=== PATIENT | male | born 1935 | race Caucasian/White ===

== ENCOUNTER 2016-05-18 01:29 | Observation (INO) | payer OTHER ==
[2016-05-18] VITALS (14 sets, daily range): BP systolic 155–240; BP diastolic 84–125; PULSE 71–106; RESP 18–22; TEMP 95.9–98.2; O2SAT 93–99
[~2016-05-18] VITALS: Ht 188 cm; Wt 81.0 kg
[~2016-05-18 01:29] MED LIST: CAPOZ2515 PO; LEVO100T60 PO; LOVA40TA PO; METO50TA PO; OMEP20CA5 PO; PACE200T4 PO; SULF1SOL4 OU; TOBRA.3%O RIGHT EYE
--- NOTE | 2016-05-18 01:43 | PD ---
HPI Chief Complaint: shortness of breath Time Seen by Provider: 01:36 Travel History International Travel<30 days: No Contact w/Intl Traveler<30days: No Traveled to known affect area: No History of Present Illness HPI 80-year-old male with history of CAD, CABG, here for evaluation of shortness of breath. The patient reports that he woke up in the middle the night feeling short of breath. He reports similar episode several days ago which resolved on its own. He had a pulmonary infection when he was young and had part of his left lung resected. For last 3 weeks he has been having a cough which is intermittent productive of greenish sputum. No fevers or chills. No chest pain. No history of DVT or PE. PFSH Past Medical History Diminished Hearing: No GERD: Yes Hiatal Hernia: Yes Hypertension: Yes Ulcer: Yes (STOMACH) Past Surgical History Coronary Artery Bypass Graft: Yes Thoracic Surgery: Yes (LUNG) Other Surgery: Yes (HIATEL HERNIA) Social History Alcohol Use: Yes (2-3 drinks daily) Tobacco Use: No Substance Use: No Allergies-Medications (Allergen,Severity, Reaction): Coded Allergies: Niacin (Verified Allergy, Severe, HIVES, 05/18/16) RASH Reported Meds & Prescriptions Reported Meds & Active Scripts Active Reported Levothyroxine (Levothyroxine Sodium) 88 Mcg Tab 88 Mcg PO DAILY Captopril-Hydrochlorothiazide 50-15 Mg Tab 1 Tab PO DAILY Take 1 hr before meal(s) Lovastatin 10 Mg Tab 10 Mg PO BID Omeprazole 20 Mg Tab 20 Mg PO BID Potassium Chloride ER (Potassium Chloride) 10 Meq Tab 10 Meq PO DAILY Metoprolol Tartrate 50 Mg Tab 50 Mg PO BID Review of Systems Except as stated in HPI: all other systems reviewed are Neg Physical Exam Narrative GENERAL: Well-developed, well-nourished, pleasant, awake, alert, speaking full sentences, no acute distress. SKIN: Warm and dry. HEAD: Atraumatic. Normocephalic. EYES: Pupils equal and round. No scleral icterus. No injection or drainage. ENT: Mucous membranes pink and moist. NECK: Trachea midline. No JVD. CARDIOVASCULAR: Regular rate and rhythm. No murmur appreciated. RESPIRATORY: No accessory muscle use. Bilateral lens between his respiratory wheezes. Speaking full sentences. Breath sounds equal bilaterally. GASTROINTESTINAL: Abdomen soft, non-tender, nondistended. MUSCULOSKELETAL: No obvious deformities. No clubbing. No cyanosis. No edema. NEUROLOGICAL: Awake and alert. No obvious cranial nerve deficits. Motor grossly within normal limits. Normal speech. PSYCHIATRIC: Appropriate mood and affect; insight and judgment normal. Data Data Last Documented VS Vital Signs Date Time Temp Pulse Resp B/P Pulse Ox O2 Delivery O2 Flow Rate FiO2 05/18/16 02:30 95 Room Air 05/18/16 02:30 85 20 206/112 05/18/16 02:15 97.6 Orders Complete Blood Count With Diff (05/18/16 01:39) Comprehensive Metabolic Panel (05/18/16 01:39) B-Type Natriuretic Peptide (05/18/16 01:39) Act Partial Throm Time (Ptt) (05/18/16 01:39) Prothrombin Time / Inr (Pt) (05/18/16 01:39) Ckmb (Isoenzyme) Profile (05/18/16 01:39) Troponin I (05/18/16 01:39) Influenzae A/B Antigen (05/18/16 01:39) Blood Culture (05/18/16 01:39) Iv Access Insert/Monitor (05/18/16 01:39) Electrocardiogram (05/18/16 01:39) Ecg Monitoring (05/18/16 01:39) Oximetry (05/18/16 01:39) Oxygen Administration (05/18/16 01:39) Chest, Single Ap (05/18/16 01:39) Sodium Chloride 0.9% Flush (Ns Flush) (05/18/16 01:45) Methylprednisolone So Succ Inj (Solumedr (05/18/16 01:45) Albuterol-Ipratropium Neb (Duoneb Neb) (05/18/16 01:45) CKMB (05/18/16 02:00) CKMB% (05/18/16 02:00) Labs Laboratory Tests Test 05/18/16 02:00 White Blood Count 10.4 TH/MM3 Red Blood Count 4.74 MIL/MM3 Hemoglobin 14.4 GM/DL Hematocrit 43.5 % Mean Corpuscular Volume 91.8 FL Mean Corpuscular Hemoglobin 30.4 PG Mean Corpuscular Hemoglobin 33.2 % Concent Red Cell Distribution Width 13.4 % Platelet Count 278 TH/MM3 Mean Platelet Volume 8.3 FL Neutrophils (%) (Auto) 58.3 % Lymphocytes (%) (Auto) 25.6 % Monocytes (%) (Auto) 9.5 % Eosinophils (%) (Auto) 6.1 % Basophils (%) (Auto) 0.5 % Neutrophils # (Auto) 6.1 TH/MM3 Lymphocytes # (Auto) 2.6 TH/MM3 Monocytes # (Auto) 1.0 TH/MM3 Eosinophils # (Auto) 0.6 TH/MM3 Basophils # (Auto) 0.1 TH/MM3 CBC Comment DIFF FINAL Differential Comment Prothrombin Time 11.5 SEC Prothromb Time International 1.0 RATIO Ratio Activated Partial 26.8 SEC Thromboplast Time Sodium Level 136 MEQ/L Potassium Level 3.4 MEQ/L Chloride Level 102 MEQ/L Carbon Dioxide Level 24.0 MEQ/L Anion Gap 10 MEQ/L Blood Urea Nitrogen 15 MG/DL Creatinine 1.20 MG/DL Estimat Glomerular Filtration 59 ML/MIN Rate Random Glucose 98 MG/DL Calcium Level 8.8 MG/DL Total Bilirubin 0.4 MG/DL Aspartate Amino Transf 16 U/L (AST/SGOT) Alanine Aminotransferase 30 U/L (ALT/SGPT) Alkaline Phosphatase 47 U/L Total Creatine Kinase 181 U/L Creatine Kinase MB 4.5 NG/ML Troponin I 0.10 NG/ML B-Type Natriuretic Peptide 246 PG/ML Total Protein 7.4 GM/DL Albumin 3.6 GM/DL [facility] Medical Decision Making Medical Screen Exam Complete: Yes Emergency Medical Condition: Yes Differential Diagnosis Reactive airway disease, pneumonia, bronchitis, ACS, pneumothorax, PE, pulmonary edema Narrative Course Initial vital signs show heart rate 81, blood pressure 240/125, pulse ox 96% on room air, oral temp of 97.6F. CBC is unremarkable. CMP is unremarkable. Cardiac enzymes show troponin of 0.10. BNP is 246. Influenza is negative. Chest x-ray: Postoperative CABG, scattered parenchymal scarring and atelectasis in the lungs. Patient was given 3 DuoNeb treatments and wheezing has resolved. He was also given soluMedrol 125 mg IV. He tells me that he has A. fib and takes aspirin for it. He was made aware of all findings. Given slight elevated troponin, he' ll be admitted for overnight observation for serial cardiac enzymes. Case discussed with hospitalist Dr. Blanchard who will admit the patient to her service. Diagnosis Primary Impression: Dyspnea Qualified Code: R06.02 - Shortness of breath Additional Impression: Elevated troponin Admitting Information Admitting Physician Requests: Observation Fernanod Mccollum MD May 18, 2016 01:43
[2016-05-18] MEDS ORDERED: SODIUM CHLORIDE 0.9% FLUSH 5 ML FLUSH IVF PRN (01:45)
[2016-05-18] MEDS ORDERED: methylPREDNISolone SOD SUCC 125 MG/2 ML VIAL IVP ONE (01:45)
[2016-05-18] MEDS: RESP: ALBUTEROL 2.5 MG/IPRATROPIUM 0.5 MG NEB (SCH) INH ×2 (01:51→01:52)
[2016-05-18 02:12] LABS: AUTOMATED NEUTROPHIL # 6.1 TH/MM3 (1.8-7.7); BASOPHIL # 0.1 TH/MM3 (0-0.2); BASOPHIL % 0.5 % (0.0-2.0); EOSINOPHIL # 0.6 TH/MM3 (0-0.4); EOSINOPHIL % 6.1 % (0.0-4.0); HEMATOCRIT 43.5 % (39.0-51.0); HEMO FLAGS DIFF FINAL; LYMPH % 25.6 % (9.0-44.0); LYMPHOCYTE # 2.6 TH/MM3 (1.0-4.8); MEAN CELL VOLUME 91.8 FL (80.0-100.0); MEAN CORPUSCULAR HEMOGLOBIN 30.4 PG (27.0-34.0); MEAN CORPUSCULAR HGB CONC 33.2 % (32.0-36.0); MONO % 9.5 % (0.0-8.0); NEUT % 58.3 % (16.0-70.0); PLATELET COUNT 278 TH/MM3 (150-450); RED BLOOD COUNT 4.74 MIL/MM3 (4.50-5.90); RED CELL DISTRIBUTION WIDTH 13.4 % (11.6-17.2); WHITE BLOOD COUNT 10.4 TH/MM3 (4.0-11.0)
[2016-05-18 02:21] LABS: CHLORIDE 102 MEQ/L (98-107); POTASSIUM 3.4 MEQ/L (3.5-5.1); SODIUM (NA) 136 MEQ/L (136-145)
[2016-05-18] MEDS ORDERED: POTA10TA2 PO (02:24)
[2016-05-18] MEDS ORDERED: METO50TA PO (02:24)
[2016-05-18] MEDS ORDERED: CAPT50TA3 PO (02:24)
[2016-05-18] MEDS ORDERED: LOVA10TA PO (02:24)
[2016-05-18] MEDS ORDERED: LEVO88TA2 PO (02:24)
[2016-05-18] MEDS ORDERED: OMEP20TA PO (02:24)
--- NOTE | 2016-05-18 02:24 | RADHPO ---
EXAM DATE/TIME: 05/18/2016 02:08 [place] COMPARISON: No previous studies available for comparison. INDICATIONS : Short of breath. MEDICAL HISTORY : Cardiovascular disease. SURGICAL HISTORY : CABG. ENCOUNTER: Initial ACUITY: 1 day PAIN SCORE: 6/10 LOCATION: Bilateral chest FINDINGS: There are postoperative changes of coronary artery bypass grafting. Previous median sternotomy and CA BG. Scattered parenchymal scarring and atelectasis in the lungs. No effusion. No pneumothorax. CONCLUSION: 1. Postoperative CABG. Scattered parenchymal scarring and atelectasis in the lungs. Joss Be MD on May 18, 2016 at 2:19 Board Certified Radiologist. This report was verified electronically.
[2016-05-18 02:25] LABS: ANION GAP 10 MEQ/L (5-15); BLOOD UREA NITROGEN 15 MG/DL (7-18)
[2016-05-18 02:26] LABS: APTT (PATIENT) 26.8 SEC (24.3-30.1); PROTHROMBIN TIME - PATIENT 11.5 SEC (9.8-11.6)
[2016-05-18 02:28] LABS: ALT (GPT) 30 U/L (12-78); AST (GOT) 16 U/L (15-37)
[2016-05-18 02:29] LABS: GLOMERULAR FILTRATION RATE 59 ML/MIN (>89)
[2016-05-18 02:30] LABS: TOTAL BILIRUBIN ADULT 0.4 MG/DL (0.2-1.0)
[2016-05-18 02:31] LABS: ALKALINE PHOSPHATASE 47 U/L (45-117); CREATINE KINASE 181 U/L (39-308)
[2016-05-18 02:43] LABS: CKMB 4.5 NG/ML (0.5-3.6)
[2016-05-18] MEDS ORDERED: MORPHINE SULFATE 4 MG/ML INJ IV PRN (03:45)
[2016-05-18] MEDS ORDERED: ACETAMINOPHEN 325 MG TAB PO PRN (03:45)
[2016-05-18] MEDS ORDERED: ACETAMINOPHEN/HYDROcodone 325 MG/5 MG TAB PO PRN (03:45)
[2016-05-18] MEDS ORDERED: SODIUM CHLORIDE 0.9% FLUSH 5 ML FLUSH FLUSH PRN (03:45)
[2016-05-18] MEDS ORDERED: RESP: ALBUTEROL 2.5 MG/IPRATROPIUM 0.5 MG NEB (PRN) NEB (03:45)
[2016-05-18] MEDS ORDERED: BISACODYL 10 MG SUPP PR PRN (03:45)
[2016-05-18] MEDS ORDERED: ONDANSETRON HCL 4 MG/2 ML VIAL IVP PRN (03:45)
[2016-05-18] MEDS ORDERED: ASPI81CH CHEW (04:34)
[2016-05-18] MEDS: SODIUM CHLORIDE 0.9% FLUSH 5 ML FLUSH FLUSH SCH ×2 (09:38→20:56)
[2016-05-18] MEDS ORDERED: POTASSIUM CHLORIDE 20 MEQ CONTROLLED RELEASE TAB PO ONE (12:15)
--- NOTE | 2016-05-18 12:18 | EKG ---
Date Performed: 05/18/2016 Time Performed: 01:43:54 PTAGE: 80 years EKG: Atrial fibrillation. Lateral T wave changes are nonspecific Compared to the previous tracin g atrial fibrillation has replaced Sinus rhythm Abnormal ECG PREVIOUS TRACING : 08/29/2007 02.19 DOCTOR: Jose Alejandro Abraham Interpretating Date/Time 05/18/2016 12:18:28
[2016-05-18] MEDS: ASPIRIN 81 MG CHEW TAB CHEW SCH (12:43)
[2016-05-18] MEDS: METOPROLOL TARTRATE 50 MG TAB PO SCH ×2 (12:43→20:56)
[2016-05-18] MEDS ORDERED: ENALAPRILAT 1.25 MG/ML VIAL IV PUSH PRN (13:00)
--- NOTE | 2016-05-18 13:10 | HHI.HP ---
zayra matthews [facility] Salvador Matthews MD Admission Diagnosis dyspnea, elevated troponin Diagnoses: Chief Complaint: Short of breath Travel History International Travel<30 Days: No Contact w/Intl Traveler <30 Da: No Traveled to Known Affected Are: No History of Present Illness Patient seen and evaluated in follow-up for increased shortness of breath and work of breathing over the last 4 days. Patient reports 3 weeks of cold symptoms including chest congestion and cough patient was taking Coricidin and Claritin-D. He had 4 days of increased dyspnea on exertion and shortness of breath. Patient says that he came to emergency room for evaluation if it did not resolve. No recent fevers or chills but he reports weight loss and just feeling poorly. Patient was evaluated in the emergency room and found to have a blood pressure of 206/112. Patient has some congestion on chest exam. X-ray of the chest does show atelectasis. There is no evidence of vascular edema on my review. Patient's been recommended for observation the hospital due to increasing work of breathing and dyspnea Review of Systems Constitutional: COMPLAINS OF: Fatigue, Weight loss, DENIES: Diaphoretic episodes, Fever, Weight gain, Chills, Dizziness, Change in appetite, Night Sweats Endocrine: DENIES: Heat/cold intolerance, Polydipsia, Polyuria, Polyphagia Eyes: DENIES: Blurred vision, Diplopia, Eye inflammation, Eye pain, Vision loss , Photosensitivity, Double Vision Ears, nose, mouth, throat: DENIES: Tinnitus, Hearing loss, Vertigo, Nasal discharge, Oral lesions, Throat pain, Hoarseness, Ear Pain, Running Nose, Epistaxis, Sinus Pain, Toothache, Odynophagia Respiratory: COMPLAINS OF: Shortness of breath Cardiovascular: COMPLAINS OF: Dyspnea on Exertion, DENIES: Chest pain, Palpitations, Syncope, PND, Lower Extremity Edema, Orthopnea, Claudication Gastrointestinal: DENIES: Abdominal pain, Black stools, Bloody stools, Constipation, Diarrhea, Nausea, Vomiting, Difficulty Swallowing, Anorexia Genitourinary: DENIES: Sexual dysfunction, Urinary frequency, Urinary incontinence, Urgency, Hematuria, Dysuria, Nocturia, Penile Discharge, Testicular Pain, Testicular Swelling Musculoskeletal: DENIES: Joint pain, Muscle aches, Stiffness, Joint Swelling, Back pain, Neck pain Integumentary: DENIES: Abnormal pigmentation, Nail changes, Pruritus, Rash Hematologic/lymphatic: DENIES: Bruising, Lymphadenopathy Immunologic/allergic: DENIES: Eczema, Urticaria Neurologic: DENIES: Abnormal gait, Headache, Localized weakness, Paresthesias, Seizures, Speech Problems, Tremor, Poor Balance Psychiatric: DENIES: Anxiety, Confusion, Mood changes, Depression, Hallucinations, Agitation, Suicidal Ideation, Homicidal Ideation, Delusions Past Family Social History Past Medical History Hypertension Coronary artery disease with bypass Hiatal hernia Past Surgical History Surgical resection of the long at 20 years old, cardiac bypass Reported Medications Reviewed in the medical record, nothing new other than [id number] Claritin -D and Coricidin Allergies: Coded Allergies: Niacin (Verified Allergy, Severe, HIVES, 05/18/16) RASH Active Ordered Medications Reviewed in the medical record Family History Family history noncontributory due to patient's age Social History Lives with his girlfriend, no current tobacco or alcohol issues Physical Exam Vital Signs Vital Signs Date Time Temp Pulse Resp B/P Pulse Ox O2 Delivery O2 Flow Rate FiO2 05/18/16 12:00 97.2 106 20 189/90 94 05/18/16 10:41 18 05/18/16 08:00 97.5 89 18 160/110 93 05/18/16 07:47 21 05/18/16 05:04 77 05/18/16 04:13 95.9 80 18 160/90 96 05/18/16 03:45 20 95 Room Air 05/18/16 03:45 98.2 71 20 185/96 95 Room Air 05/18/16 03:15 77 20 174/92 94 Room Air 05/18/16 03:00 78 20 173/99 94 Room Air 05/18/16 02:45 78 20 200/97 Room Air 05/18/16 02:30 95 Room Air 05/18/16 02:30 85 20 206/112 95 Room Air 05/18/16 02:19 77 20 96 Room Air 05/18/16 02:15 97.6 77 20 224/113 96 Room Air 05/18/16 02:15 77 20 224/113 96 Room Air 05/18/16 01:51 99 21 05/18/16 01:42 97.6 81 22 240/125 96 Physical Exam GENERAL: This is a well-nourished, well-developed patient, in no apparent distress. SKIN: No rashes, ecchymoses or lesions. Cool and dry. HEAD: Atraumatic. Normocephalic. No temporal or scalp tenderness. EYES: Pupils equal round and reactive. Extraocular motions intact. No scleral icterus. No injection or drainage. ENT: Nose without bleeding, purulent drainage or septal hematoma. Throat without erythema, tonsillar hypertrophy or exudate. Uvula midline. Airway patent. NECK: Trachea midline. No JVD or lymphadenopathy. Supple, nontender, no meningeal signs. CARDIOVASCULAR: Regular rate and rhythm without murmurs, gallops, or rubs. RESPIRATORY: Bilateral crackles in the bases bilaterally GASTROINTESTINAL: Abdomen soft, non-tender, nondistended. No hepato-splenomegaly , or palpable masses. No guarding. MUSCULOSKELETAL: Extremities without clubbing, cyanosis, or edema. No joint tenderness, effusion, or edema noted. No calf tenderness. Negative Homans sign bilaterally. NEUROLOGICAL: Awake and alert. Cranial nerves II through XII intact. Motor and sensory grossly within normal limits. Five out of 5 muscle strength in all muscle groups. Normal speech. Laboratory Laboratory Tests Test 05/18/16 05/18/16 02:00 08:05 White Blood Count 10.4 Red Blood Count 4.74 Hemoglobin 14.4 Hematocrit 43.5 Mean Corpuscular Volume 91.8 Mean Corpuscular Hemoglobin 30.4 Mean Corpuscular Hemoglobin 33.2 Concent Red Cell Distribution Width 13.4 Platelet Count 278 Mean Platelet Volume 8.3 Neutrophils (%) (Auto) 58.3 Lymphocytes (%) (Auto) 25.6 Monocytes (%) (Auto) 9.5 Eosinophils (%) (Auto) 6.1 Basophils (%) (Auto) 0.5 Neutrophils # (Auto) 6.1 Lymphocytes # (Auto) 2.6 Monocytes # (Auto) 1.0 Eosinophils # (Auto) 0.6 Basophils # (Auto) 0.1 CBC Comment DIFF FINAL Differential Comment Prothrombin Time 11.5 Prothromb Time International 1.0 Ratio Activated Partial 26.8 Thromboplast Time Sodium Level 136 Potassium Level 3.4 Chloride Level 102 Carbon Dioxide Level 24.0 Anion Gap 10 Blood Urea Nitrogen 15 Creatinine 1.20 Estimat Glomerular Filtration 59 Rate Random Glucose 98 Calcium Level 8.8 Total Bilirubin 0.4 Aspartate Amino Transf 16 (AST/SGOT) Alanine Aminotransferase 30 (ALT/SGPT) Alkaline Phosphatase 47 Total Creatine Kinase 181 Creatine Kinase MB 4.5 Troponin I 0.10 0.08 B-Type Natriuretic Peptide 246 Total Protein 7.4 Albumin 3.6 Date/Time Procedure Status Source Growth 05/18/16 02:05 Aerobic Blood Culture Received Blood Peripheral Pending 05/18/16 02:05 Anaerobic Blood Culture Received Blood Peripheral Pending 05/18/16 01:53 Influenza Types A,B Antigen (SHARMILA) - Final Complete Nasal Washing NEGATIVE FOR FLU A AND B ANTIGEN.... Result Diagram: 05/18/1619905/18/16199 Imaging Last Impressions Chest X-Ray 05/18/16 0139 Signed Impressions: Service Date/Time: Wednesday, May 18, 2016 02:08 - CONCLUSION: 1. Postoperative CABG. Scattered parenchymal scarring and atelectasis in the lungs. Joss Be MD Assessment and Plan Problem List: (1) Dyspnea ICD Code: R06.00 Status: Acute Plan: Etiology unclear. May be related to recent viral infection versus cardiac. Given patient's cardiac history will check an echocardiogram. Continue with workup (2) HTN (hypertension) ICD Code: I10 Status: Acute Plan: Uncontrolled. May be due to taking decongestant. We'll continue patient 's captopril, hydrochlorothiazide and metoprolol for now. Medications as needed (3) Elevated troponin ICD Code: R74.8 Status: Acute Plan: may be due to htn improved echo pending Continue metoprolol, captopril, and aspirin (4) Hypokalemia ICD Code: E87.6 Status: Acute Plan: Status post replacement, follow trend, check mag Assessment and Plan Plan Of care to be determined by Hospital course Code Status full code Discussed Condition With Patient, GF and MEdSUrg RN Problem Qualifiers (1) Dyspnea: Qualified Code: R06.02 - Shortness of breath Awa Montes MD May 18, 2016 13:09
[2016-05-18] MEDS: HYDROCHLOROTHIAZIDE 12.5 MG CAP PO SCH (13:29)
[2016-05-18] MEDS: CAPTOPRIL 50 MG TAB PO SCH (13:29)
[2016-05-18] MEDS ORDERED: cloNIDine HCL 0.1 MG TAB PO PRN (16:45)
[2016-05-18] MEDS: PANTOPRAZOLE SOD 20 MG DELAYED RELEASE TAB PO SCH (20:56)
[2016-05-18] MEDS: PRAVASTATIN SOD 10 MG TAB PO SCH (20:57)
[2016-05-18] MEDS ORDERED: METOPROLOL TARTRATE 50 MG TAB PO SCH (21:00)
[2016-05-19] VITALS: BP 160/102; PULSE 81; RESP 16; TEMP 97.6; O2SAT 96
[2016-05-19 04:00] VITALS: BP 158/99; PULSE 81; RESP 18; TEMP 97.6; O2SAT 97
[2016-05-19] MEDS ORDERED: LEVOTHYROXINE SODIUM 88 MCG TAB PO SCH (06:00)
[2016-05-19 06:02] LABS: AUTOMATED NEUTROPHIL # 14.3 TH/MM3 (1.8-7.7); BASOPHIL % 0.1 % (0.0-2.0); EOSINOPHIL % 0.1 % (0.0-4.0); HEMATOCRIT 39.6 % (39.0-51.0); LYMPH % 11.8 % (9.0-44.0); LYMPHOCYTE # 2.1 TH/MM3 (1.0-4.8); MEAN CELL VOLUME 92.3 FL (80.0-100.0); MEAN CORPUSCULAR HEMOGLOBIN 31.3 PG (27.0-34.0); MEAN CORPUSCULAR HGB CONC 33.9 % (32.0-36.0); PLATELET COUNT 261 TH/MM3 (150-450); RED BLOOD COUNT 4.29 MIL/MM3 (4.50-5.90); RED CELL DISTRIBUTION WIDTH 13.1 % (11.6-17.2); WHITE BLOOD COUNT 18.2 TH/MM3 (4.0-11.0)
[2016-05-19 06:03] LABS: CHLORIDE 102 MEQ/L (98-107); POTASSIUM 3.8 MEQ/L (3.5-5.1); SODIUM (NA) 137 MEQ/L (136-145)
[2016-05-19 06:07] LABS: ANION GAP 12 MEQ/L (5-15); BICARBONATE 23.4 MEQ/L (21.0-32.0); BLOOD UREA NITROGEN 22 MG/DL (7-18)
[2016-05-19 06:09] LABS: HEMO FLAGS DIFF FINAL
[2016-05-19 06:10] LABS: ALT (GPT) 24 U/L (12-78); AST (GOT) 12 U/L (15-37); GLOMERULAR FILTRATION RATE 53 ML/MIN (>89)
[2016-05-19 06:11] LABS: TOTAL BILIRUBIN ADULT 0.6 MG/DL (0.2-1.0)
[2016-05-19 06:13] LABS: ALKALINE PHOSPHATASE 40 U/L (45-117)
[2016-05-19 08:13] VITALS: BP 176/99; PULSE 60; RESP 18; TEMP 97.5; O2SAT 96
[2016-05-19] MEDS ORDERED: POTASSIUM CHLORIDE 10 MEQ CONTROLLED RELEASE TAB PO SCH (09:00)
[2016-05-19] MEDS: METOPROLOL TARTRATE 50 MG TAB PO SCH (09:02)
[2016-05-19] MEDS: CAPTOPRIL 50 MG TAB PO SCH (09:02)
[2016-05-19] MEDS: HYDROCHLOROTHIAZIDE 12.5 MG CAP PO SCH (09:02)
[2016-05-19] MEDS: SODIUM CHLORIDE 0.9% FLUSH 5 ML FLUSH FLUSH SCH (09:03)
[2016-05-19] MEDS: ASPIRIN 81 MG CHEW TAB CHEW SCH (09:03)
[2016-05-19] MEDS: PANTOPRAZOLE SOD 20 MG DELAYED RELEASE TAB PO SCH (09:03)
[2016-05-19] MEDS: PRAVASTATIN SOD 10 MG TAB PO SCH (09:03)
[2016-05-19] MEDS ORDERED: PNEUMOCOCCAL POLYVALENT INJ 25 MCG/0.5 ML SYR IM ONE (10:00)
[2016-05-19] MEDS ORDERED: AMLO5 PO (10:05)
--- NOTE | 2016-05-19 10:06 | HHI.DCPOC ---
Discharge Care Plan Diagnosis: (1) Hypokalemia (2) Dyspnea (3) HTN (hypertension) (4) Elevated troponin Goals to Promote Your Health * To prevent worsening of your condition and complications * To maintain your health at the optimal level Directions to Meet Your Goals Take your medications as prescribed Follow your dietary instruction Follow activity as directed Keep your appointments as scheduled Take your immunizations and boosters as scheduled If your symptoms worsen call your PCP, if no PCP go to Urgent Care Center or Emergency Room Smoking is Dangerous to Your Health. Avoid second hand smoke Call the 24-hour hour crisis hotline for domestic abuse at Awa Montes MD May 19, 2016 10:05
--- NOTE | 2016-05-19 10:11 | HHI.PR ---
Subjective Remarks Patient seen and evaluated today in follow-up or shortness of breath and hypertension. Pressure bit better today. Patient shortness of breath is somewhat improved also. Echocardiogram pending Objective Vitals Vital Signs Date Time Temp Pulse Resp B/P Pulse Ox O2 Delivery O2 Flow Rate FiO2 05/19/16 08:13 97.5 60 18 176/99 96 05/19/16 04:00 97.6 81 18 158/99 97 05/19/16 00:00 97.6 81 16 160/102 96 05/18/16 20:00 84 05/18/16 20:00 97.6 81 18 155/89 95 155/89 05/18/16 16:00 96.9 74 18 159/84 94 05/18/16 12:00 97.2 106 20 189/90 94 05/18/16 10:41 18 I/O 05/18/16 05/18/16 05/18/16 05/19/16 05/19/16 05/19/16 07:00 15:00 23:00 07:00 15:00 23:00 Intake Total 0 ml 1250 ml 420 ml 400 ml Balance 0 ml 1250 ml 420 ml 400 ml Intake Oral 1250 ml 420 ml 400 ml IV Total 0 ml # Voids 2 4 2 # Bowel Movements 0 0 Result Diagram: 05/19/16 0545 05/19/16 0545 A/P Problem List: (1) Dyspnea ICD Code: R06.00 Status: Acute Plan: improved Etiology unclear. May be related to recent viral infection versus cardiac. Given patient's cardiac history will check an echocardiogram. Continue with workup Etiology unclear. May be related to recent viral infection versus cardiac. Given patient's cardiac history will check an echocardiogram. Continue with workup (2) HTN (hypertension) ICD Code: I10 Status: Acute Plan: Uncontrolled. May be due to taking decongestant. We'll continue patient 's captopril, hydrochlorothiazide and metoprolol for now. Add Norvasc (3) Elevated troponin ICD Code: R74.8 Status: Acute Plan: may be due to htn improved echo pending Continue metoprolol, captopril, and aspirin (4) Hypokalemia ICD Code: E87.6 Status: Acute Plan: Resolved Discharge Planning Likely discharge home later today Problem Qualifiers (1) Dyspnea: Qualified Code: R06.02 - Shortness of breath Simon,Awa Mimi MD May 19, 2016 10:11
--- NOTE | 2016-05-19 11:55 | EC ---
Study Study Date:05/19/2016 STUDY CONCLUSIONS SUMMARY - Left ventricle: The cavity size was normal. Wall thickness was increased in a pattern of mild LVH. Systolic function was at the lower limits of normal. The estimated ejection fraction was in the range of 50% to 55%. Wall motion was normal; there were no regional wall motion abnormalities. - Mitral valve: Mild to moderate regurgitation. - Left atrium: The atrium was moderately dilated. - Right atrium: The atrium was mildly dilated. - Pulmonary arteries: Systolic pressure was mildly to moderately increased. PA peak pressure: 47mm Hg (S). If LV function is below 40, please consider prescribing an ACEI or ARB or document rationale for non-use. PROCEDURE DATA STUDY STATUS: Elective. Procedure: Transthoracic echocardiography. Image quality was good. Scanning was performed from the parasternal, apical, and subcostal acoustic windows. Study completion: The patient tolerated the procedure well. Transthoracic echocardiography. M-mode, complete 2D, complete spectral Doppler, and color Doppler. Patient status: Inpatient. CARDIAC ANATOMY LEFT VENTRICLE: Not well visualized. The cavity size was normal. Wall thickness was increased in a pattern of mild LVH. Systolic function was at the lower limits of normal. The estimated ejection fraction was in the range of 50% to 55%. Wall motion was normal; there were no regional wall motion abnormalities. AORTIC VALVE: Probably trileaflet; mildly thickened, moderately calcified leaflets. Doppler: Transvalvular velocity was within the normal range. There was no stenosis. No regurgitation. AORTA: Aortic root: The aortic root was normal in size. MITRAL VALVE: Structurally normal valve. Doppler: Transvalvular velocity was within the normal range. There was no evidence for stenosis. Mild to moderate regurgitation. LEFT ATRIUM: The atrium was moderately dilated. RIGHT VENTRICLE: The cavity size was normal. Wall thickness was normal. PULMONIC VALVE: Doppler: Transvalvular velocity was within the normal range. There was no evidence for stenosis. No regurgitation. TRICUSPID VALVE: Structurally normal valve. Doppler: Transvalvular velocity was within the normal range. Trace to mild regurgitation. PULMONARY ARTERY: The main pulmonary artery was normal-sized. Systolic pressure was mildly to moderately increased. RIGHT ATRIUM: The atrium was mildly dilated. PERICARDIUM: There was no pericardial effusion. SYSTEMIC VEINS: Inferior vena cava: The vessel was normal in size. BASIC MEASUREMENTS ADULT Normal Left ventricle LV internal dimension, ED, chordal level, 44.9 mm 43-52 PLAX LV internal dimension, ES, chordal level, 34.5 mm 23-38 PLAX Fractional shortening, chordal level, PLAX *23 % >29 LV posterior wall thickness, ED 10.6 mm IVS/LVPW ratio, ED *1.53 <1.3 Ventricular septum Septal thickness, ED 16.2 mm Aortic valve Leaflet separation *14 mm 15-26 Right ventricle RV internal dimension, ED, PLAX *41.1 mm 19-38 BASIC MEASUREMENTS ADULT Normal Aortic valve Leaflet separation *14 mm 15-26 Aorta Root diameter, ED *43 mm 20-37 Left atrium Anterior-posterior dimension, ES *42 mm 19-40 LA/aortic root ratio 0.98 DOPPLER MEASUREMENTS ADULT Normal Main pulmonary artery Pressure, S *47 mm Hg =30 Tricuspid valve Regurgitant peak velocity 306 cm/s Peak RV-RA gradient, S 37 mm Hg Maximal regurgitant velocity 306 cm/s Systemic veins Estimated CVP 10 mm Hg Right ventricle RV pressure, S *47 mm Hg <30 LEGEND: Mean values are shown as u=mean value. Asterisk (*) vieira values outside specified normal range. Prepared and signed by Chino Ocampo [id number]
--- NOTE | 2016-05-19 12:35 | HHI.DS ---
dakota ludwig Discharge Summary Admission Date May 18, 2016 at 03:02 Discharge Date: May 19, 2016 Admitting Diagnosis dyspnea, elevated troponin (1) Dyspnea ICD Code: R06.00 (2) HTN (hypertension) ICD Code: I10 (3) Elevated troponin ICD Code: R74.8 (4) Hypokalemia ICD Code: E87.6 Procedures none Brief History - From Admission Patient seen and evaluated in follow-up for increased shortness of breath and work of breathing over the last 4 days. Patient reports 3 weeks of cold symptoms including chest congestion and cough patient was taking Coricidin and Claritin-D. He had 4 days of increased dyspnea on exertion and shortness of breath. Patient says that he came to emergency room for evaluation if it did not resolve. No recent fevers or chills but he reports weight loss and just feeling poorly. Patient was evaluated in the emergency room and found to have a blood pressure of 206/112. Patient has some congestion on chest exam. X-ray of the chest does show atelectasis. There is no evidence of vascular edema on my review. Patient's been recommended for observation the hospital due to increasing work of breathing and dyspnea CBC/BMP: 05/19/16 0545 05/19/16 0545 Significant Findings Laboratory Tests Test 05/18/16 05/18/16 05/18/16 05/19/16 02:00 08:05 14:00 05:45 Monocytes (%) (Auto) 9.5 % (0.0-8.0) 10.0 % (0.0-8.0) Eosinophils (%) (Auto) 6.1 % (0.0-4.0) Monocytes # (Auto) 1.0 TH/MM3 1.8 TH/MM3 (0-0.9) (0-0.9) Eosinophils # (Auto) 0.6 TH/MM3 (0-0.4) Potassium Level 3.4 MEQ/L (3.5-5.1) Estimat Glomerular Filtration 59 ML/MIN (>89) 53 ML/MIN (>89) Rate Creatine Kinase MB 4.5 NG/ML (0.5-3.6) Troponin I 0.10 NG/ML 0.08 NG/ML 0.09 NG/ML (0.02-0.05) (0.02-0.05) (0.02-0.05) B-Type Natriuretic Peptide 246 PG/ML (0-100) White Blood Count 18.2 TH/MM3 (4.0-11.0) Red Blood Count 4.29 MIL/MM3 (4.50-5.90) Neutrophils (%) (Auto) 78.0 % (16.0-70.0) Neutrophils # (Auto) 14.3 TH/MM3 (1.8-7.7) Blood Urea Nitrogen 22 MG/DL (7-18) Random Glucose 112 MG/DL (74-106) Aspartate Amino Transf 12 U/L (15-37) (AST/SGOT) Alkaline Phosphatase 40 U/L (45-117) Imaging Last Impressions Chest X-Ray 05/18/16 0139 Signed Impressions: Service Date/Time: Wednesday, May 18, 2016 02:08 - CONCLUSION: 1. Postoperative CABG. Scattered parenchymal scarring and atelectasis in the lungs. Joss eB MD PE at Discharge GENERAL: This is a well-nourished, well-developed patient, in no apparent distress. CARDIOVASCULAR: Regular rate and rhythm without murmurs, gallops, or rubs. RESPIRATORY: Clear to auscultation. Breath sounds equal bilaterally. No wheezes , rales, or rhonchi. GASTROINTESTINAL: Abdomen soft, non-tender, nondistended. Normal active bowel sounds MUSCULOSKELETAL: Extremities without clubbing, cyanosis, or edema. NEURO: Alert & Oriented x4 to person, place, time, situation. Moves all ext x4 Pt update on day of discharge please see daily note Hospital Course This patient is a 80-year-old gentleman with hypertension. He had increased hypertension and increased work of breathing and was noted to have this after he took some decongestants for recent cold. Patient did have improvement They did have echocardiogram done which did show some right sided dysfunction for which the patient is already on MYKE inhibitor for. His EF is preserved. Patient will continue with blood pressure monitoring and Norvasc was added to improve this Pt Condition on Discharge: Good Discharge Disposition: Discharge Home Discharge Time: > 30 minutes Discharge Instructions DIET: Follow Instructions for: Heart Healthy Diet Activities you can perform: Regular-No Restrictions Follow up Referrals: PCP Follow-up - 1 Week with oziel New Medications: Amlodipine (Norvasc) 5 Mg Tab 5 MG PO DAILY Blood Pressure Management #30 Ref 0 TAB Continued Medications: Aspirin (Aspirin) 81 Mg Chew 81 MG CHEW DAILY Ref 0 TAB Captopril-Hydrochlorothiazide (Captopril-Hydrochlorothiazide) 50-15 Mg Tab 1 TAB PO DAILY Take 1 hr before meal(s) Blood Pressure Management #30 Ref 0 TAB Levothyroxine (Levothyroxine) 88 Mcg Tab 88 MCG PO DAILY Thyroid #30 Ref 0 TAB Lovastatin (Lovastatin) 10 Mg Tab 10 MG PO BID Cholesterol Management #30 Ref 0 TAB Metoprolol Tartrate (Metoprolol Tartrate) 50 Mg Tab 50 MG PO BID #60 Ref 0 TAB Omeprazole (Omeprazole) 20 Mg Tab 20 MG PO BID #30 Ref 0 TAB Potassium Chloride ER (Potassium Chloride ER) 10 Meq Tab 10 MEQ PO DAILY Electrolyte Replacement #30 Ref 0 TAB Awa Montes MD May 19, 2016 12:35
== END 2016-05-19 13:22 | disposition home or self-care (01) ==
LOC: PHED 01:29 → PHEDA 03:02 → PH3A 04:06
PROVIDERS: ADMIT Hospitalist; ATTEND Hospitalist
DX: R06.00 Dyspnea, unspecified (principal); I10 Essential (primary) hypertension; R74.8 Abnormal levels of other serum enzymes; I48.91 Unspecified atrial fibrillation; J98.11 Atelectasis; E87.6 Hypokalemia; I25.10 Atherosclerotic heart disease of native coronary artery without angina pectoris; K21.9 Gastro-esophageal reflux disease without esophagitis; Z95.1 Presence of aortocoronary bypass graft; Z79.82 Long term (current) use of aspirin
CPT/HCPCS: 71010; 80053; 82550; 82552; 83735; 83880; 84484; 85025; 85610; 85730; 87040; 87804; 93005; 93306; 94640; 94664; 96374; 99285; G0378; J2930

== ENCOUNTER 2017-07-04 05:05 | Emergency (ER) | payer OTHER ==
[~2017-07-04] VITALS: Ht 188 cm; Wt 102.1 kg
[~2017-07-04 05:05] MED LIST changes: +AMLO5 PO; +ASPI-516 CHEW; -CAPOZ2515 PO; +CAPT50TA3 PO; -LEVO100T60 PO; +LEVO88TA2 PO; +LOVA10TA PO; -LOVA40TA PO; -OMEP20CA5 PO; +OMEP20TA93 PO; -PACE200T4 PO; +POTA10TA2 PO; -SULF1SOL4 OU; -TOBRA.3%O RIGHT EYE
[2017-07-04 05:08] VITALS: BP 186/96; PULSE 79; RESP 18; O2SAT 98
[2017-07-04 05:24] VITALS: BP 151/94; PULSE 74; RESP 16; O2SAT 96
[2017-07-04] MEDS ORDERED: AUGM875T3 PO (05:31)
--- NOTE | 2017-07-04 05:37 | PD ---
HPI Chief Complaint: Nosebleed Time Seen by Provider: 05:26 Travel History International Travel<30 days: No Contact w/Intl Traveler<30days: No Traveled to known affect area: No History of Present Illness HPI The patient is a 81-year-old male that complains of epistaxis for several hours. The epistaxis was a large amount of blood according to the patient. The patient is on aspirin but no other anticoagulants. He states he had been drinking alcohol last night. He denies any headache. PFSH Past Medical History Asthma: No Blood Disorders: No Heart Rhythm Problems: Yes (HX AFIB) Cancer: No Cardiovascular Problems: Yes (CABG) High Cholesterol: Yes Chest Pain: No Congestive Heart Failure: No COPD: No Diabetes: No Diminished Hearing: No Endocrine: No Gastrointestinal Disorders: Yes (HX HEARTBURN, ULCER) GERD: Yes Genitourinary: No Hiatal Hernia: Yes Hypertension: Yes Immune Disorder: No Implanted Vascular Access Dvce: No Musculoskeletal: No Neurologic: No Psychiatric: No Reproductive: No Respiratory: No Immunizations Current: Yes Sleep Apnea: No Thyroid Disease: Yes Ulcer: Yes (STOMACH) ?: Not Past Surgical History Coronary Artery Bypass Graft: Yes Thoracic Surgery: Yes (LUNG) Other Surgery: Yes (HIATEL HERNIA) Social History Alcohol Use: Yes (2-3 drinks daily) Tobacco Use: No Substance Use: No Allergies-Medications (Allergen,Severity, Reaction): Coded Allergies: niacin (Verified Allergy, Severe, HIVES, 07/04/17) RASH Reported Meds & Prescriptions Reported Meds & Active Scripts Active Norvasc (Amlodipine Besylate) 5 Mg Tab 5 Mg PO DAILY Reported Aspirin 81 Mg Chew 81 Mg CHEW DAILY Levothyroxine (Levothyroxine Sodium) 88 Mcg Tab 88 Mcg PO DAILY Captopril-Hydrochlorothiazide 50-15 Mg Tab 1 Tab PO DAILY Take 1 hr before meal(s) Lovastatin 10 Mg Tab 10 Mg PO BID Omeprazole 20 Mg Tab 20 Mg PO BID Potassium Chloride ER (Potassium Chloride) 10 Meq Tab 10 Meq PO DAILY Metoprolol Tartrate 50 Mg Tab 50 Mg PO BID Review of Systems Except as stated in HPI: all other systems reviewed are Neg Physical Exam Narrative GENERAL: Well-nourished, well-developed patient who is alert and oriented in no apparent distress. SKIN: Focused skin assessment warm/dry. HEAD: Normocephalic. EYES: No scleral icterus. No injection or drainage. NECK: Supple, trachea midline. No JVD or lymphadenopathy. CARDIOVASCULAR: Regular rate and rhythm without murmurs, gallops, or rubs. RESPIRATORY: Breath sounds equal bilaterally. No accessory muscle use. GASTROINTESTINAL: Abdomen soft, non-tender, nondistended. MUSCULOSKELETAL: No cyanosis, or edema. BACK: Nontender without obvious deformity. No CVA tenderness. ENT: The patient has blood in the left nares only. This was cleaned out no active bleeding was seen anteriorly. There is a small amount of blood coursing down the posterior pharyngeal wall. Data Data Last Documented VS Vital Signs Date Time Temp Pulse Resp B/P (MAP) Pulse Ox O2 Delivery O2 Flow Rate FiO2 07/04/17 05:24 74 16 151/94 (113) 96 Room Air MDM Medical Decision Making Medical Screen Exam Complete: Yes Emergency Medical Condition: Yes Medical Record Reviewed: Yes Differential Diagnosis Anterior epistaxis, coagulopathy, posterior epistaxis Narrative Course The patient has posterior epistaxis. This is a large amount of blood according to the patient and he has never bled like this before. Plan: The patient will get a posterior packing and he will follow-up with ENT. He will get a prescription for Augmentin. Procedures Procedure Narrative A posterior packing was put in, this was painful initially but the patient tolerated it fairly well. No bleeding was present after the packing was put in. Diagnosis Primary Impression: Posterior epistaxis Additional Impression: Elevated blood pressure reading Additional Instructions: As we discussed, follow-up with otolaryngology. We will give you the name and number of an seo consultant (ENT) . If you have any problems, return to the emergency department. The Augmentin is 1 tablet twice daily for 10 days. This is to prevent an infection in her sinuses. Med/Other Pt SpecificInfo: Prescription(s) given Scripts Amoxicillin-Clavulanate (Augmentin) 875-125 Mg Tab 1 TAB PO BID for Infection for 10 Days, #20 TAB 0 Refills Prov: Nitish Mcfadden MD 07/04/17 Disposition: 01 DISCHARGE HOME Condition: Stable Nitish Mcfadden MD Jul 04, 2017 05:37
[2017-07-04 05:54] VITALS: BP 149/86
[2017-07-04] MEDS ORDERED: AMOXICILLIN/CLAVULANATE K 875 MG TAB PO ONE (06:00)
== END 2017-07-04 05:54 | disposition home or self-care (01) ==
LOC: PHED 05:05
DX: R04.0 Epistaxis (principal); R03.0 Elevated blood-pressure reading, without diagnosis of hypertension; I48.91 Unspecified atrial fibrillation; E78.00 Pure hypercholesterolemia, unspecified; K21.9 Gastro-esophageal reflux disease without esophagitis; I10 Essential (primary) hypertension; E07.9 Disorder of thyroid, unspecified; Z79.82 Long term (current) use of aspirin; Z79.899 Other long term (current) drug therapy
CPT/HCPCS: 30905